=== PATIENT | male | born 1985 | race Caucasian/White ===

== ENCOUNTER 2019-09-27 13:53 | Inpatient (IN) | payer MEDICAID, OTHER ==
[~2019-09-27] VITALS: Ht 165.1 cm; Wt 59.9 kg
[~2019-09-27 13:53] MED LIST: LEVE500T19 PO; LISI-604 PO; METO50TA95 PO; REN800 PO
[2019-09-27 15:11] LABS: BASOPHILS % 0.5 % (0.0-2.0); EOSINOPHILS % 0.3 % (0.0-5.0); HEMATOCRIT. 36.4 % (42.0-52.0); HEMOGLOBIN. 12.3 g/dL (14.0-18.0); LYMPHOCYTES % 8.1 % (20.0-50.0); MEAN CORPUSCULAR HEMOGLOBIN 31.9 pg (28.0-32.0); MEAN CORPUSCULAR VOLUME 94.2 fL (80.0-94.0); MONOCYTES % 6.2 % (2.0-8.0); NEUTROPHILS % 84.9 % (40.0-76.0); PLATELET 110 x1000/uL (130-400); RED BLOOD CELL COUNT 3.86 mill/uL (4.7-6.1); RED CELL DISTRIBUTION WIDTH 14.2 % (11.6-14.6)
[2019-09-27 15:17] LABS: CHLORIDE 96 mEq/L (98-107); PROTHROMBIN TIME 10.7 sec (9.6-11.0)
[2019-09-27] MEDS ORDERED: MORPHINE SULFATE 4 MG/ML CPJ (NOT FOR IM USE) IV ONE (18:00)
[2019-09-27] MEDS ORDERED: CEFTRIAXONE 1 G PREMIX 50 ML IV ONE (18:15)
[2019-09-27] MEDS ORDERED: AZITHROMYCIN 500 MG in DEXT 5% WATER 250 ML IV SCH (18:15)
[2019-09-27 22:00] VITALS: BP 166/104
[2019-09-27] MEDS ORDERED: IOHEXOL-350 100 ML BOTTLE ONE (22:11)
[2019-09-27] MEDS: MORPHINE SULFATE 2 MG/ML CPJ (NOT FOR IM USE) IV PRN (22:50)
[2019-09-27] MEDS ORDERED: CLON0.3T4 PO (23:28)
[2019-09-27] MEDS ORDERED: CALC667C MT (23:28)
[2019-09-27] MEDS ORDERED: CLONIDINE 0.1MG TABLET PO PRN (23:30)
[2019-09-27] MEDS ORDERED: ONDANSETRON HCL 4MG/2ML INJ IV PRN (23:30)
[2019-09-27] MEDS ORDERED: MORPHINE SULFATE 2 MG/ML CPJ (NOT FOR IM USE) IV PRN (23:30)
[2019-09-27] MEDS ORDERED: LORAZEPAM 2MG/ML CPJ IV PRN (23:30)
[2019-09-27] MEDS ORDERED: IPRATROPIUM/ALBUTEROL 0.5-3(2.5)MG/3ML NEB NEB PRN (23:30)
[2019-09-28 00:37] LABS: CREATINE KINASE 45 IU/L (39-308)
[2019-09-28 00:38] LABS: CREATINE KINASE MB FRACTION < 1.0 ng/mL (0.5-3.6)
[2019-09-28] MEDS: MORPHINE SULFATE 2 MG/ML CPJ (NOT FOR IM USE) IV PRN ×3 (03:28→20:23)
[2019-09-28 04:00] VITALS: BP 169/93
[2019-09-28] MEDS: CLONIDINE 0.3MG TABLET PO SCH ×3 (05:27→21:34)
[2019-09-28 08:00] VITALS: BP 145/88
[2019-09-28] MEDS: ENOXAPARIN 30MG/0.3ML SYR SUBCUT SCH (08:51)
[2019-09-28] MEDS: LEVETIRACETAM 500MG TABLET PO SCH ×3 (08:52→20:17)
[2019-09-28] MEDS: THIAMINE HCL 100MG TABLET PO SCH ×2 (08:52)
[2019-09-28] MEDS: MULTIVITAMINS,THER W-MINERALS TABLET PO SCH (08:52)
[2019-09-28] MEDS: LISINOPRIL 20MG TABLET PO SCH ×2 (08:53→20:17)
[2019-09-28] MEDS ORDERED: METOPROLOL TARTRATE 50MG TABLET PO SCH (09:00)
[2019-09-28] MEDS: CALCIUM ACETATE 667 MG TABLET PO SCH ×3 (11:24→19:04)
[2019-09-28 12:00] VITALS: BP 121/66
[2019-09-28 12:27] LABS: BASOPHILS % 0.8 % (0.0-2.0); EOSINOPHILS % 0.1 % (0.0-5.0); HEMATOCRIT. 40.4 % (42.0-52.0); HEMOGLOBIN. 13.5 g/dL (14.0-18.0); LYMPHOCYTES % 16.5 % (20.0-50.0); MEAN CORPUSCULAR HEMOGLOBIN 31.7 pg (28.0-32.0); MEAN CORPUSCULAR VOLUME 95.1 fL (80.0-94.0); MEAN PLATELET VOLUME 7.6 fl (7.4-10.4); MONOCYTES % 9.2 % (2.0-8.0); NEUTROPHILS % 73.4 % (40.0-76.0); PLATELET 113 x1000/uL (130-400); RED BLOOD CELL COUNT 4.26 mill/uL (4.7-6.1); RED CELL DISTRIBUTION WIDTH 14.3 % (11.6-14.6)
[2019-09-28 12:55] LABS: CREATINE KINASE MB FRACTION 1.4 ng/mL (0.5-3.6)
[2019-09-28] MEDS: HYDROCODONE/ACETAMINOPHEN 5/325MG TABLET PO PRN (13:24)
[2019-09-28 16:00] VITALS: BP 124/80
[2019-09-28] MEDS ORDERED: DIPHENHYDRAMINE 50MG/ML VIAL IV NR (16:00)
[2019-09-28] MEDS ORDERED: CEFTRIAXONE 1 G PREMIX 50 ML IV SCH (18:00)
[2019-09-28 19:10] LABS: CREATINE KINASE MB FRACTION 1.1 ng/mL (0.5-3.6)
[2019-09-28 20:00] VITALS: BP 164/91
[2019-09-28] MEDS: CARVEDILOL 6.25 MG TABLET PO SCH (20:18)
[2019-09-29] VITALS: BP 143/78
[2019-09-29] MEDS ORDERED: ACETAMINOPHEN 650MG/20.3ML UDC PO PRN (00:30)
[2019-09-29] MEDS: ACETAMINOPHEN 325MG TABLET PO PRN ×2 (01:02→14:59)
[2019-09-29 04:00] VITALS: BP 123/73
[2019-09-29] MEDS: MORPHINE SULFATE 2 MG/ML CPJ (NOT FOR IM USE) IV PRN (04:30)
[2019-09-29 04:57] LABS: BASOPHILS % 0.6 % (0.0-2.0); EOSINOPHILS % 0.2 % (0.0-5.0); HEMOGLOBIN. 11.6 g/dL (14.0-18.0); LYMPHOCYTES % 14.8 % (20.0-50.0); MEAN CORPUSCULAR HEMOGLOBIN 32.1 pg (28.0-32.0); MEAN CORPUSCULAR VOLUME 94.5 fL (80.0-94.0); NEUTROPHILS % 74.4 % (40.0-76.0); PLATELET 106 x1000/uL (130-400)
[2019-09-29] MEDS: CLONIDINE 0.3MG TABLET PO SCH ×2 (05:33→14:59)
[2019-09-29 08:00] VITALS: BP 104/54
[2019-09-29] MEDS: CALCIUM ACETATE 667 MG TABLET PO SCH ×2 (08:39→12:04)
[2019-09-29] MEDS: ENOXAPARIN 30MG/0.3ML SYR SUBCUT SCH (08:40)
[2019-09-29] MEDS: LEVETIRACETAM 500MG TABLET PO SCH (08:42)
[2019-09-29] MEDS: LISINOPRIL 20MG TABLET PO SCH (08:42)
[2019-09-29] MEDS: MULTIVITAMINS,THER W-MINERALS TABLET PO SCH (08:42)
[2019-09-29] MEDS: THIAMINE HCL 100MG TABLET PO SCH (08:42)
[2019-09-29] MEDS: CARVEDILOL 6.25 MG TABLET PO SCH (09:00)
[2019-09-29] MEDS: HYDROCODONE/ACETAMINOPHEN 5/325MG TABLET PO PRN (12:21)
[2019-09-29 12:25] VITALS: BP 130/78
[2019-09-29] MEDS ORDERED: LEVO500T2 MT (13:20)
[2019-09-29] MEDS ORDERED: HYDR-4001 MT (13:20)
[2019-09-29 15:39] VITALS: BP 130/72
[2019-09-29 16:21] VITALS: BP 130/72
[2019-09-30] MEDS ORDERED: FOLIC ACID/VITAMIN B COMP W-C TABLET PO SCH (09:00)
== END 2019-09-29 16:42 | disposition home or self-care (01) | DRG 203 ==
LOC: ER 13:53 → EDBEDREQ 17:59 → 8WST 18:05 → EDBEDREQ 18:21 → ENRESERV 19:25
PROVIDERS: ADMIT Internal Medicine Nephrology; ATTEND Internal Medicine Nephrology
PROC: 5A1D70Z Performance of Urinary Filtration, Intermittent, Less than 6 Hours Per Day (ICD-10-PCS; principal; 2019-09-28)
DX: M94.0 Chondrocostal junction syndrome [Tietze] (principal); I27.20 Pulmonary hypertension, unspecified; E44.1 Mild protein-calorie malnutrition; E87.8 Other disorders of electrolyte and fluid balance, not elsewhere classified; E87.1 Hypo-osmolality and hyponatremia; E87.5 Hyperkalemia; I12.0 Hypertensive chronic kidney disease with stage 5 chronic kidney disease or end stage renal disease; N18.6 End stage renal disease; R16.2 Hepatomegaly with splenomegaly, not elsewhere classified; G40.909 Epilepsy, unspecified, not intractable, without status epilepticus; D63.8 Anemia in other chronic diseases classified elsewhere; Z99.2 Dependence on renal dialysis; Z68.22 Body mass index [BMI] 22.0-22.9, adult
CPT/HCPCS: 36415; 71045; 71275; 74174; 76700; 80048; 80053; 82550; 82553; 83605; 83735; 83880; 84100; 84484; 85025; 85651; 86140; 93005; 93306; 93922; 99285; J0456; J0696; J1200; J1650; J2270; J2405; J7060; Q9967

== ENCOUNTER 2021-11-25 01:03 | Emergency (ER) | payer MEDICAID, OTHER ==
[~2021-11-25] VITALS: Ht 167.6 cm; Wt 70.0 kg
[~2021-11-25 01:03] MED LIST changes: +CALC667C MT; +CLON0.3T4 PO; +HYDR-4001 MT; +LEVO500T2 MT; -LISI-604 PO; +LISI20TA31 PO
[2021-11-25] MEDS ORDERED: MORPHINE SULFATE 4 MG/ML CPJ (NOT FOR IM USE) IV ONE (01:45)
[2021-11-25 01:54] LABS: EOSINOPHILS % 1.9 % (0.0-5.0); HEMATOCRIT. 32.6 % (42.0-52.0); HEMOGLOBIN. 11.3 g/dL (14.0-18.0); LYMPHOCYTES % 30.8 % (20.0-50.0); MEAN CORPUSCULAR HEMOGLOBIN 32.9 pg (28.0-32.0); MEAN CORPUSCULAR VOLUME 94.8 fL (80.0-94.0); MEAN PLATELET VOLUME 6.4 fl (7.4-10.4); MONOCYTES % 10.9 % (2.0-8.0); NEUTROPHILS % 55.4 % (40.0-76.0); PLATELET 82 x1000/uL (130-400); RED BLOOD CELL COUNT 3.44 mill/uL (4.7-6.1); RED CELL DISTRIBUTION WIDTH 14.5 % (11.6-14.6)
[2021-11-25 01:57] LABS: CHLORIDE 97 mEq/L (98-107)
[2021-11-25] MEDS ORDERED: HEPARIN 25,000 UNITS PREMIX 250 ML IV SCH (03:45)
[2021-11-25] MEDS ORDERED: HEPARIN BOLUS PRN aPTT <36 IV (03:45)
[2021-11-25] MEDS ORDERED: HEPARIN 80 UNITS/KG BOLUS IV SCH (03:45)
[2021-11-25] MEDS ORDERED: HEPARIN BOLUS PRN aPTT 37-44 IV (03:45)
[2021-11-25 04:00] VITALS: BP 132/83
[2021-11-25] MEDS ORDERED: ENOXAPARIN 80MG/0.8ML SYR SUBCUT ONE (04:00)
[2021-11-25 04:28] LABS: PARTIAL THROMBOPLASTIN TIME 32.2 sec (23.4-31.0); PROTHROMBIN TIME 11.2 sec (9.6-11.0)
== END 2021-11-25 04:42 | disposition short-term general hospital (02) ==
LOC: ER 01:03
DX: I82.622 Acute embolism and thrombosis of deep veins of left upper extremity (principal); R07.89 Other chest pain; E87.70 Fluid overload, unspecified; I12.0 Hypertensive chronic kidney disease with stage 5 chronic kidney disease or end stage renal disease; N18.6 End stage renal disease; Z99.2 Dependence on renal dialysis; Z98.890 Other specified postprocedural states; Z79.899 Other long term (current) drug therapy
CPT/HCPCS: 36415; 71045; 80053; 83605; 83880; 84145; 84484; 85025; 85610; 85730; 93005; 93971; 96372; 96374; 99285; J1650; J2270